=== PATIENT | male | born 1990 | race African-American/Black ===

== ENCOUNTER 2019-10-22 20:26 | Emergency (ER) | payer SELFPAY ==
[2019-10-22] MEDS ORDERED: HYDROCODONE/ACETAMINOPHEN 5/325MG TABLET PO ONE (22:00)
[2019-10-22] MEDS ORDERED: METHOCARBAMOL 750MG TABLET PO ONE (22:00)
[2019-10-22] MEDS ORDERED: KETOROLAC 60MG/2ML VIAL IM ONE (22:00)
[2019-10-23 00:08] VITALS: BP 120/70
== END 2019-10-23 00:10 | disposition home or self-care (01) ==
LOC: ER 20:26
DX: M54.5 Low back pain (principal); M62.830 Muscle spasm of back; F12.10 Cannabis abuse, uncomplicated
CPT/HCPCS: 96372; 99283; J1885